=== PATIENT | male | born 1980 | race Caucasian/White ===

== ENCOUNTER 2025-03-17 21:18 | Inpatient (IN) | payer OTHER ==
[~2025-03-17] VITALS: Ht 177.8 cm; Wt 75.3 kg
[2025-03-17 21:32] VITALS: O2SAT 96
[2025-03-17] MEDS: ONDANSETRON HCL 4MG/2ML INJ IV ONE (22:13)
[2025-03-17] MEDS: MORPHINE SULFATE 4 MG/ML INJ (FOR IV/IM USE) IV ONE (22:13)
[2025-03-17] MEDS: SODIUM CHLORIDE 0.9% 1,000 ML IV ONE (22:13)
[2025-03-17 22:22] LABS: BASOPHILS % 0.5 % (0.0-2.0); EOSINOPHILS % 0.6 % (0.0-5.0); HEMATOCRIT. 43.3 % (42.0-52.0); HEMOGLOBIN. 14.4 g/dL (14.0-18.0); LYMPHOCYTES % 14.2 % (20.0-50.0); MEAN PLATELET VOLUME 8.8 fl (7.4-10.4); MONOCYTES % 4.6 % (2.0-8.0); NEUTROPHILS % 80.1 % (40.0-76.0); PLATELET 244 x1000/uL (130-400); RED BLOOD CELL COUNT 4.86 mill/uL (4.7-6.1); RED CELL DISTRIBUTION WIDTH 11.9 % (11.6-14.6)
[2025-03-17 22:33] LABS: INR 0.9
[2025-03-17 22:34] LABS: CREATININE 1.0 mg/dL (0.6-1.3)
[2025-03-17 22:35] LABS: UREA NITROGEN BLOOD 11 mg/dL (9-23)
[2025-03-17 22:36] LABS: ASPARTATE AMINOTRANSFERASE 23 IU/L (<34)
[2025-03-17 22:37] LABS: BILIRUBIN DIRECT 0.1 mg/dL (<=3.0); BILIRUBIN TOTAL 0.4 mg/dL (0.1-1.0); PROTEIN TOTAL 6.9 g/dL (6.0-8.3)
[2025-03-17] MEDS ORDERED: CEFTRIAXONE 2,000 MG in DEXT 5% WATER 100 ML IV SCH (22:45)
[2025-03-18] MEDS ORDERED: ACETAMINOPHEN 325MG TABLET PO PRN
[2025-03-18] MEDS ORDERED: IPRATROPIUM/ALBUTEROL 0.5-3(2.5)MG/3ML NEB HHN PRN
[2025-03-18] MEDS ORDERED: ONDANSETRON HCL 4MG/2ML INJ IV PRN
[2025-03-18] MEDS ORDERED: HYDRALAZINE 20MG/ML VIAL IV PRN
[2025-03-18] MEDS ORDERED: DOCUSATE SODIUM 100MG CAPSULE PO PRN
[2025-03-18] MEDS: CEFTRIAXONE IV NR (00:10)
[2025-03-18] MEDS: DEXT 5% IV NR (00:10)
[2025-03-18] MEDS: WATER IV NR (00:10)
[2025-03-18 01:00] VITALS: BP 137/87; PULSE 93; RESP 16; TEMP 36.3624
[2025-03-18] MEDS: DEXT 5%/0.45% NACL 1000ML 1,000 ML IV SCH (01:09)
[2025-03-18 04:00] VITALS: BP 125/84; PULSE 76; RESP 19; TEMP 36.4; O2SAT 98
[2025-03-18] MEDS ORDERED: IOHEXOL-300 100 ML BOTTLE ONE (06:40)
[2025-03-18 08:00] VITALS: BP 124/77; PULSE 74; RESP 17; TEMP 36.5; O2SAT 98
[2025-03-18 09:10] LABS: BASOPHILS % 0.2 % (0.0-2.0); EOSINOPHILS % 0.1 % (0.0-5.0); HEMATOCRIT. 39.8 % (42.0-52.0); HEMOGLOBIN. 13.3 g/dL (14.0-18.0); LYMPHOCYTES % 7.4 % (20.0-50.0); MEAN PLATELET VOLUME 8.6 fl (7.4-10.4); MONOCYTES % 5.2 % (2.0-8.0); NEUTROPHILS % 87.1 % (40.0-76.0); PLATELET 202 x1000/uL (130-400); RED BLOOD CELL COUNT 4.43 mill/uL (4.7-6.1); RED CELL DISTRIBUTION WIDTH 12.3 % (11.6-14.6)
[2025-03-18] MEDS: PANTOPRAZOLE SODIUM 40 MG/VIAL IV SCH (09:22)
[2025-03-18 09:28] LABS: TROPONIN I HIGH SENSITIVITY < 4 ng/L (3.0-53)
[2025-03-18 09:30] LABS: CREATININE 0.8 mg/dL (0.6-1.3)
[2025-03-18 09:31] LABS: TRIGLYCERIDE 50 mg/dL (0-150); UREA NITROGEN BLOOD 8 mg/dL (9-23)
[2025-03-18 09:32] LABS: LDL CHOLESTEROL 84 mg/dL (5-100); T4 FREE 1.17 ng/dL (0.89-1.76)
[2025-03-18 12:00] VITALS: BP 115/75; PULSE 72; RESP 18; TEMP 36.5; O2SAT 98
[2025-03-18 14:37] LABS: CLARITY URINE CLEAR (CLEAR); COLOR URINE YELLOW (YELLOW); GLUCOSE URINE NEGATIVE (NEGATIVE); KETONES URINE NEGATIVE (NEGATIVE); LEUKOCYTE ESTERASE URINE NEGATIVE (NEGATIVE); NITRITE URINE NEGATIVE (NEGATIVE); OCCULT BLOOD URINE 2+ (NEGATIVE); PH URINE 6.0 (4.5-8.0); PROTEIN URINE NEGATIVE (NEGATIVE); SPECIFIC GRAVITY URINE 1.013 (1.005-1.030); UROBILINOGEN URINE 0.2 E.U./dL (0.2-1.0)
[2025-03-18 15:17] LABS: SQUAMOUS EPITHELIAL CELL URINE NONE SEEN /lpf (RARE/1+)
[2025-03-18 15:18] LABS: WBC URINE 0-2 /hpf (0-2)
[2025-03-18 15:19] LABS: MUCUS URINE TRACE /lpf (NONE/TRACE)
[2025-03-18 15:21] LABS: BACTERIA URINE TRACE
[2025-03-18 15:55] VITALS: BP 118/78; PULSE 78; RESP 18; TEMP 98
[2025-03-18 16:00] VITALS: BP 129/81; PULSE 81; RESP 17; TEMP 36.5; O2SAT 98
== END 2025-03-18 16:30 | disposition home or self-care (01) | DRG 872 ==
LOC: ER 21:18 → 6EST 23:36 → EDBEDREQSVC 23:38 → EDBEDREQTM 23:38 → EDBEDREQ 23:38 → ENRESERV 03-18 00:24
PROVIDERS: ADMIT Internal Medicine; ATTEND Internal Medicine
DX: A41.9 Sepsis, unspecified organism (principal); N13.2 Hydronephrosis with renal and ureteral calculous obstruction; E87.0 Hyperosmolality and hypernatremia; I10 Essential (primary) hypertension; R73.9 Hyperglycemia, unspecified; D72.829 Elevated white blood cell count, unspecified; Z79.899 Other long term (current) drug therapy
CPT/HCPCS: 36415; 74177; 80048; 80061; 80076; 81003; 83930; 84439; 84443; 84484; 85025; 86850; 86900; 97166; 99285; J0696; J2270; J2405; J2470; J7030; J7060; Q9967